=== PATIENT | female | born 1960 | race Caucasian/White ===

== ENCOUNTER → 2018-02-27 | Day surgery (SDC) | payer BC ==
[2018-02-10 10:38] VITALS: Ht 157.5 cm; Wt 96.4 kg
[~2018-02-27] VITALS: Ht 157.5 cm; Wt 96.4 kg
[~2018-02-27] MED LIST: ALBU18002 INH; ALPR0.25 PO; ATROPINE SULFATE 0.1 MG/ML 5ML SYR IV PRN; BECL40AE8 INH; BUPIVACAINE 0.25% 30 ML VIAL ONE; CEFAZOLIN 2000MG IV PUSH 15 ML IV SCH; CHOL20009 PO; DEXAMETHASONE SOD INJ 4 MG/ML VIAL ONE; EpHEDrine SULFATE INJ 50 MG/ML AMP IV PRN; EpINEphrine INJ 1MG/ML AMP 1 MG/ML AMP ONE; FENTANYL CITRATE INJ 50 MCG/1 ML 2 ML VIAL IV PRN; FENTANYL CITRATE INJ 50 MCG/1 ML 2 ML VIAL ONE; IBUP-1050 PO; KETO10TA PO; KETOROLAC TROMETHAMINE 30 MG/ML VIAL IV. PRN; KETOROLAC TROMETHAMINE 30 MG/ML VIAL ONE; LACTATED RINGER'S 1000ML 1,000 ML IV SCH; LEVO100T PO; LIDOCAINE HCL 2% 2 ML VIAL (20MG/ML) ONE; LISI-461 PO; MIDAZOLAM HCL 1 MG/ML 2ML VIAL ONE; MONT1TAB3 PO; ONDANSETRON INJ 2 MG/ML 2 ML VIAL IV PRN; ONDANSETRON INJ 2 MG/ML 2 ML VIAL ONE; OXYC-57 PO; OXYCODONE/ACETAMINOPHEN 5-325 TAB PO PRN; PROPOFOL IV EMULSION 10 MG/ML 20 ML VIAL ONE; ROPIVACAINE 0.5% 5 MG/ML 30 ML VIAL ONE; SODIUM CHLORIDE 0.9% 1000ML 1,000 ML IV SCH; TRAM-10 PO
--- NOTE | 2018-02-27 06:41 | History & Physical Bridge - [place] ---
H&P Re-Evaluation Bridge Note: I have examined the patient, reviewed the History & Physical and in the interval since the performance of the History & Physical I have noted the following changes of clinical significance: No changes noted
--- NOTE | 2018-02-27 08:55 | [facility] Post Operative Brief Note ---
Immediate Operative Summary Operative Date Feb 27, 2018. Pre-Operative Diagnosis Right Shoulder Full Thickness Rotator Cuff tear Post-Operative Diagnosis Same Procedure(s) Performed Right Shoulder Arthroscopy With Medium Rotator Cuff Repair, Acromioplasty, and Biceps Tenodesis Surgeon Dr. Palomares Market Investigator Surgeon(s) Lucas Atkinson PA-C Estimated Blood Loss 5ml Findings Consistent with Post-Op Diagnosis Specimens None Anesthesia Type General Regional
--- NOTE | 2018-02-27 09:08 | Discharge Instructions-SurgCtr ---
Discharge Instructions Date of Service Feb 27, 2018. Visit Reason for Visit: Right Shoulder Full Thickness Rotator Cuff Tear Discharge Discharge Diagnosis / Problem: SAME ABOVE Discharge Goals Goal(s): Decrease discomfort, Improve function, Increase independence Medications Stopped Medications Name(s): HELD VITAMIN D AND ADVIL FOR SEVEN DAYS Restart Stopped Medication(s): MAY RESTART VITAMIN D 02/27/2018 MAY RESTART ADVIL WHEN FINISHED WITH TORADOL TAKE TORADOL EVERY 8 HOURS WITH FOOD UNTIL FINISHED Activity Recommendations Activity Limitations: as noted below Lifting Limitations: until after follow-up appointment Exercise/Sports Limitations: until after follow-up appointment Anesthesia . Post Anesthesia Instructions: If you have had General Anesthesia or IV Sedation: * Do not drive today. * Resume driving when surgeon permits. * Do not make important decisions or sign legal documents today. * Call surgeon for: 1. Temperature elevations greater than 101 degrees F. 2. Uncontrollable pain. 3. Excessive bleeding. 4. Persistent nausea and vomiting. 5. Medication intolerance (nausea, vomiting or rash). * For nausea and vomiting use only clear liquids such as: tea, soda, bouillon until nausea subsides, then gradually increase diet as tolerated. * If you have any concerns or questions, call your surgeon's office. If physician is unavailable and it is an emergency, call 911 or go to the nearest emergency room. . Instructions / Follow-Up Instructions / Follow-Up MEDICATIONS: * Resume previous medications unless instructed otherwise by your surgeon. * Always take pain medication on a full stomach or with food to avoid upset stomach. * Do not drink alcohol or drive while taking narcotics. * Ibuprofen or Tylenol may be taken if narcotic not needed. SPECIAL CARE INSTRUCTIONS: __ None _X_ Keep extremity elevated and iced x 48 hours; apply ice 20-30 minutes 8-10 times/day. May remove at night. __ Sling __24 hrs/day __ Remove at night X__ Shoulder Immobilizer (MAY REMOVE AFTER 48 HOURS ONLY TO SHOWER AND FOR THERAPY) _X_ 24 hrs/day __ Remove at night X__ Dressing __ Maintain until seen in office, may shower with plastic over site _X_ Remove dressings in 24-48 hours and then may shower _X_ Cover incisions with band-aids after showering __ Do not remove steri-strips Call physician if chills or temperature rises above 102 degrees or pain unrelieved by prescribed pain medications at . . Diet Recommendations Home Diet: no limitations Fluid Restriction: None Procedures Procedures Performed: Right Shoulder Arthroscopy With Medium Rotator Cuff Repair, Acromioplasty, and Biceps Tenodesis Pending Studies Studies pending at discharge: no Work Instructions Return To Work: after follow-up Lifting Limitations: NO LIFTING WITH RIGHT ARM Medical Emergencies . Who to Call and When: Medical Emergencies: If at any time you feel your situation is an emergency, please call 911 immediately. . Non-Emergent Contact Non-Emergency issues call your: Surgeon Call Non-Emergent contact if: your pain is not controlled, your pain is worsening, wound has increased drainage . . "Provider Documentation" section prepared by Jacob Atkinson. .
--- NOTE | 2018-02-27 09:19 | Anesthesia Progress Nt - [facility] ---
Anesthesia Post Op Note Date & Time Feb 27, 2018 at 09:19 Vital Signs Pain Intensity: 5 Vital Signs Past 12 Hours Date Time Temp Pulse Resp B/P (MAP) Pulse Ox O2 Delivery O2 Flow Rate FiO2 02/27/18 09:11 36.8 75 16 162/89 99 Room Air 02/27/18 07:45 0 02/27/18 07:41 146/82 02/27/18 07:40 72 4 100 02/27/18 07:40 69 02/27/18 07:35 76 02/27/18 07:35 75 4 141/85 100 02/27/18 07:31 118/85 02/27/18 07:30 86 0 100 02/27/18 07:30 85 02/27/18 07:26 136/79 02/27/18 07:25 82 02/27/18 07:25 86 5 100 02/27/18 07:20 92 0 02/27/18 07:15 87 0 02/27/18 07:10 78 0 02/27/18 07:05 81 0 02/27/18 07:00 79 02/27/18 06:37 179/110 02/27/18 06:35 69 02/27/18 06:35 69 99 02/27/18 06:30 179/110 02/27/18 06:19 36.7 74 18 179/110 (133) 97 Room Air Notes Mental Status: alert / awake / arousable, participated in evaluation Pt Amnestic to Procedure: Yes Nausea / Vomiting: adequately controlled Pain: adequately controlled Airway Patency, RR, SpO2: stable & adequate BP & HR: stable & adequate Hydration State: stable & adequate Anesthetic Complications: no major complications apparent
--- NOTE | 2018-02-27 09:28 | OPERATIVE REPORT ---
DATE OF OPERATION: 02/27/2018 PREOPERATIVE DIAGNOSIS: Medium sized right rotator cuff tear. POSTOPERATIVE DIAGNOSIS: Same. PROCEDURE: Right shoulder diagnostic arthroscopy with limited debridement and acromioplasty, medium size rotator cuff tear and arthroscopic biceps tenodesis. SURGEON: Anthony Palomares DO. BOND ANALYST: Jacob Atkinson PA-C, whose assistance was necessary for positioning the arm and helping with instrumentation. ANESTHESIA: General with a right interscalene nerve block. COMPLICATIONS: None. CONDITION: Stable to PACU. INDICATIONS: Miesha is a pleasant 57-year-old female who got a tetanus shot a year ago. She has been having pain in her right shoulder since then. MRI and clinical examination were diagnostic for a medium size rotator cuff tear. More likely the shoulder pain from the cuff tear and the tetanus shot were coincidental, unlikely a tetanus shot caused a rotator cuff tear. After failing conservative treatment, she elected to undergo arthroscopic repair. DESCRIPTION OF PROCEDURE: On 02/27/2018, she arrived at [facility] [address] for the above procedure. She was seen in the preoperative holding area, and the operative extremity was identified and signed. She was given a preoperative antibiotic and a right interscalene nerve block. She was taken back to the operating room, laid on table in supine position. She was put into the beachchair position. Right shoulder was prepped and draped in sterile fashion. A timeout was done. The patient's operative extremity was appropriately identified. A scope was introduced in the posterior portal. Diagnostic arthroscopy showed no cartilage damage to the humeral head or the glenoid. There was a little fraying of the anterior labrum. Biceps tendon looked okay. There was a tear of the entire supraspinatus, which included the biceps rudy mechanism. The infraspinatus, teres minor, and subscapularis were all checked and intact. An anterior portal was made. A shaver was used to do limited debridement of the intraarticular structures. The biceps tendon was tenotomized for later tenodesis. The scope was then put into the subacromial space. A lateral portal was made. A shaver was used to do a complete subacromial and subdeltoid bursectomy. An ablator was used to tease the coracoacromial ligament off the undersurface of the acromion, and shaver was used to do a very minimal acromioplasty of a small bone spur on the very anterior acromion. Attention was turned to the rotator cuff. An additional anterolateral portal was made, and Tracy cannulae were placed in each of the lateral portals. The rotator cuff tear was better defined with a shaver. It was a medium size crescent-shaped rotator cuff tear. The greater tuberosity was prepared with a ring curette and microfracture. The rotator cuff was then fixed with an Arthrex SpeedBridge configuration using 4.75 mm BioComposite SwiveLock suture anchors and FiberTapes. This gave a nice knotless SpeedBridge repair. The long head of biceps tendon was tagged with a FiberLink and incorporated into the anterior medial anchor to complete an arthroscopic biceps tenodesis. The scope was then placed back into the glenohumeral joint, and the articular margin of the rotator cuff had been restored. Pictures were taken. Arthroscopic instruments removed from the shoulder. Portal sites were closed with 3-0 nylon. She was then placed in a soft dressing and abduction arm sling. She was then extubated, transferred to a litter, and taken to the postanesthesia care unit in stable condition. She tolerated the procedure well. I attest to the content of the Intraoperative Record and any orders documented therein. Any exception s are noted below.
[2018-02-27 09:40] VITALS: TEMP 36.4
[2018-02-27 10:29] VITALS: BP 138/87; PULSE 80; O2SAT 96
== END | disposition home or self-care (01) ==
LOC: X.SURG 06:04
PROVIDERS: ATTEND Orthopaedic Surgery
DX: M75.101 Unspecified rotator cuff tear or rupture of right shoulder, not specified as traumatic (principal); I10 Essential (primary) hypertension; J45.909 Unspecified asthma, uncomplicated; E66.9 Obesity, unspecified; Z68.39 Body mass index [BMI] 39.0-39.9, adult; Z90.710 Acquired absence of both cervix and uterus; Z88.2 Allergy status to sulfonamides